=== PATIENT | female | born 1960 | race Caucasian/White ===

== ENCOUNTER 2016-10-19 17:59 | Emergency (ER) | payer BC ==
[2016-10-19] MEDS ORDERED: ALBUTEROL SO4 2.5/IPRATROPIUM 0.5 INH SOL 3 ML VIAL.NEB. NEB ONE ×4 (19:32→21:23)
[2016-10-19 19:43] VITALS: BP 136/64; PULSE 58; TEMP 98.1; BMI 32.6
[2016-10-19 20:21] LABS: BASOPHIL 0.6 % (0-2.0); MCH 29.5 pg (25.7-33.7); MCHC 33.9 g/dl (32.0-36.0); MEAN PLT VOLUME 9.1 fl (7.5-11.1); NEUTROPHILS 52.1 % (42.8-82.8); PLATELET COUNT 280 K/MM3 (134-434); RDW 13.2 % (11.6-15.6); WHITE BLOOD COUNT 8.5 K/mm3 (4.0-10.0)
[2016-10-19 20:42] LABS: INR 0.96 (0.82-1.09); PROTHROMBIN TIME (PATIENT) 10.6 SEC (9.98-11.88)
[2016-10-19 21:22] LABS: ALBUMIN 4.1 g/dl (3.4-5.0); ANION GAP 7 (8-16); CALCIUM 9.1 mg/dL (8.5-10.1); CO2 28 mmol/L (21-32); GLUCOSE,RANDOM 95 mg/dL (74-106); MAGNESIUM 2.1 mg/dL (1.8-2.4)
[2016-10-19 21:27] LABS: ALK PHOS 99 U/L (45-117); BILIRUBIN,TOTAL 0.3 mg/dL (0.2-1.0); SGOT/AST 68 U/L (15-37); SGPT/ALT 71 U/L (12-78); TOT PROT 7.6 g/dl (6.4-8.2); TROPONIN I < 0.02 ng/ml (0.00-0.05)
[2016-10-19] MEDS ORDERED: predniSONE 20 MG TABLET (UD) PO ONE (22:31)
--- NOTE | 2016-10-19 22:31 | PDOC ---
History of Present Illness - General Chief Complaint: Respiratory Stated Complaint: CHEST PAIN Time Seen by Provider: 10/19/16 19:08 History Source: Patient Exam Limitations: No Limitations - History of Present Illness Initial Comments: 10/19/16 22:26 CC cough and chest tightness x 2 days; no fever; asthma acting up Timing/Duration: reports: yesterday Severity: reports: mild Modifying Factors: improves with: albuterol inhaler Associated Symptoms: reports: nasal drainage, shortness of breath. denies: fever/chills, lightheadedness, muscle aches Past History - Past Medical History Allergies/Adverse Reactions: Allergies Allergy/AdvReac Type Severity Reaction Status Date / Time No Known Drug Allergies Allergy Verified 10/19/16 19:31 Home Medications: Ambulatory Orders Levothyroxine Sodium [Synthroid] 150 mcg PO DAILY 02/10/14 Azithromycin 250 mg PO DAILY #4 tablet 01/07/16 Tramadol HCl 50 mg PO Q6H PRN #12 tablet MDD 4 01/07/16 Albuterol Sulfate Inhaler - [Ventolin Hfa Inhaler -] 1 - 2 inh PO Q4H PRN Anemia: No Asthma: Yes Cancer: Yes (THYROID 1999) Cardiac Disorders: No CVA: No COPD: No CHF: No Dementia: No Diabetes: No GI Disorders: No Disorders: No HTN: No Hypercholesterolemia: No Liver Disease: No Seizures: No Thyroid Disease: Yes (HYPO) - Surgical History Abdominal Surgery: No - Immunization History Immunization Up to Date: Yes - Psycho/Social/Smoking Cessation Hx Anxiety: No Suicidal Ideation: No Smoking Status: Yes Smoking History: Current some day smoker Have you smoked in the past 12 months: Yes Number of Cigarettes Smoked Daily: 2 Information on smoking cessation initiated: No 'Breaking Loose' booklet given: 07/09/12 Hx Alcohol Use: No Drug/Substance Use Hx: No Substance Use Type: Alcohol Review of Systems - Review of Systems Constitutional: No: Symptoms Reported, Chills, Fever, Malaise HEENTM: Yes: Symptoms Reported. No: Double Vision Respiratory: Yes: Cough, Wheezing. No: Symptoms reported, Shortness of Breath, SOB with Exertion, SOB at Rest, Stridor Cardiac (ROS): Yes: Chest Tightness. No: Chest Pain, Irregular Heart Rate ABD/GI: No: Abdominal Distended, Constipated, Diarrhea, Nausea, Vomiting Integumentary: No: Symptoms Reported Neurological: No: Symptoms reported *Physical Exam - Vital Signs Last Vital Signs Temp Pulse Resp BP Pulse Ox 98.1 F 58 L 16 136/64 98 10/19/16 19:32 10/19/16 19:32 10/19/16 19:32 10/19/16 19:32 10/19/16 19:32 - Physical Exam General Appearance: Yes: Appropriately Dressed. No: Apparent Distress HEENT: positive: TMs Normal, Nasal Congestion, Rhinorrhea Neck: positive: Supple, Lymphadenopathy (R), Lymphadenopathy (L). negative: Tender, Rigid Respiratory/Chest: positive: Wheezing (scattered wheezing). negative: Chest Tender, Respiratory Distress, Accessory Muscle Use, Labored Respiration, Rhonchi , Stridor Cardiovascular: positive: Regular Rhythm, Regular Rate. negative: Murmur ED Treatment Course - LABORATORY CBC & Chemistry Diagram: 10/19/16 20:10 10/19/16 20:10 - ADDITIONAL ORDERS Additional order review: Laboratory Results 10/19/16 10/19/16 20:10 20:10 INR 0.96 Sodium 139 Potassium 4.3 Chloride 104 Carbon Dioxide 28 Anion Gap 7 L BUN 13 D Creatinine 1.0 Creat Clearance w eGFR 57.15 Random Glucose 95 Calcium 9.1 Magnesium 2.1 Total Bilirubin 0.3 D AST 68 H D ALT 71 D Alkaline Phosphatase 99 D Creatine Kinase 840 H CK-MB (CK-2) 4.544 H Troponin I < 0.02 Total Protein 7.6 Albumin 4.1 10/19/16 20:10 RBC 4.57 MCV 87.0 MCHC 33.9 RDW 13.2 MPV 9.1 Neutrophils % 52.1 D Lymphocytes % 39.2 D Monocytes % 6.1 Eosinophils % 2.0 D Basophils % 0.6 - Medications Given in the ED: ED Medications Discontinued Medications Generic Name Dose Route Start Last Admin Trade Name Freq PRN Reason Stop Dose Admin Albuterol/Ipratropium 1 amp 10/19/16 19:32 10/19/16 20:20 Duoneb - NEB 10/19/16 19:33 1 amp ONCE ONE Administration Albuterol/Ipratropium 1 amp 10/19/16 21:23 10/19/16 21:28 Duoneb - NEB 10/19/16 21:24 1 amp ONCE ONE Administration Medical Decision Making - Medical Decision Making 10/19/16 22:28 feeling much better post combivent x 2 ; will start prednesone x 5 days; chest xray negative *DC/Admit/Observation/Transfer Diagnosis at time of Disposition: Exacerbation of asthma - Discharge Dispostion Disposition: HOME Condition at time of disposition: Stable Admit: No - Patient Instructions Additional Instructions: please see local MD in 2 days for increased symptoms; rest; return for increased symptoms
[2016-10-19] MEDS ORDERED: predniSONE 20 MG TABLET (UD) ONE (22:32)
--- NOTE | 2016-10-20 16:09 | EKG ---
Test Reason : Blood Pressure : / mmHG Vent. Rate : 063 BPM Atrial Rate : 063 BPM P-R Int : 154 ms QRS Dur : 076 ms QT Int : 438 ms P-R-T Axes : 042 004 036 degrees QTc Int : 448 ms NORMAL SINUS RHYTHM NORMAL ECG WHEN COMPARED WITH ECG OF 07-JAN-2016 21:05, NONSPECIFIC T WAVE ABNORMALITY NO LONGER EVIDENT IN ANTEROLATERAL LEADS Confirmed by KODY ADAMSON MD ([id number]) on 10/20/2016 4:09:10 PM Referred By: DM Confirmed By:KODY ADAMSON MD
== END 2016-10-19 22:35 | disposition home or self-care (01) ==
LOC: JERFT 17:59 → JER 17:59 → JERFT 22:35
PROC: 3E0F7GC Introduction of Other Therapeutic Substance into Respiratory Tract, Via Natural or Artificial Opening (ICD-10-PCS; principal; 2016-10-19)
DX: J45.901 Unspecified asthma with (acute) exacerbation (principal); E03.9 Hypothyroidism, unspecified; F17.210 Nicotine dependence, cigarettes, uncomplicated; Z85.850 Personal history of malignant neoplasm of thyroid
CPT/HCPCS: 36415; 71020-TC; 80053; 82550; 82553; 83735; 84484; 85025; 85610; 93005; 93010; 99281-25

== ENCOUNTER 2020-05-09 13:54 | Emergency (ER) | payer BC, OTHER ==
[2020-05-09 14:05] VITALS: BMI 31.0
[2020-05-09] MEDS ORDERED: ONDANSETRON 4 MG/2 ML VIAL IVPUSH ONE (14:34)
[2020-05-09] MEDS ORDERED: ACETAMINOPHEN 1000 MG/100 ML VIAL (NON FORMULARY) IVPB ONE (14:34)
--- NOTE | 2020-05-09 14:43 | PDOC ---
History of Present Illness - History of Present Illness Initial Comments: 05/09/20 14:54 60 y/o F hx of thyroid CA (s/p thyroidectomy on daily synthroid), presents after mechanical fall on the sidewalk [place] front of [place]. pt reports getting slipper stuck in a crack and falling backward hitting the back of her head. there was no LOC after fall. Pt endorses 7/10 throbbing pain in the back of her head, nausea and fatigue.There has been no vomiting. Pt able to ambulate after incident and here in the ED. She endorses left sided neck pain and bruising on her left ankle and right first toe. She denies abdominal pain, back pain, blurry vision, weakness, numbness/tingling, PMHx: as noted above ROS: as noted SHx: occasional alcohol use, denies drug use. former smoker Allergies: NKDA ROS: GENERAL/CONSTITUTIONAL: No fever or chills. No weakness. HEAD, EYES, EARS, NOSE AND THROAT: No change in vision. No ear pain or discharge. No sore throat. CARDIOVASCULAR: No chest pain or shortness of breath RESPIRATORY: No cough, wheezing, or hemoptysis. GASTROINTESTINAL: No nausea, vomiting, diarrhea or constipation. GENITOURINARY: No dysuria, frequency, or change in urination. MUSCULOSKELETAL: No joint or muscle swelling or pain. No neck or back pain. SKIN: No rash NEUROLOGIC: No headache, vertigo, loss of consciousness, or change in strength/sensation. ENDOCRINE: No increased thirst. No abnormal weight change HEMATOLOGIC/LYMPHATIC: No anemia, easy bleeding, or history of blood clots. ALLERGIC/IMMUNOLOGIC: No hives or skin allergy. PE: GENERAL: Awake, alert, and fully oriented, in no acute distress HEAD:ttp in the occiput with mild swelling, no bleeding or lacerations observed. EYES: PERRLA, EOMI, sclera anicteric, conjunctiva clear ENT: Auricles normal inspection, hearing grossly normal, nares patent, oropharynx clear without exudates. Moist mucosa NECK: Normal ROM, supple, no lymphadenopathy, JVD, or masses LUNGS: No distress, speaks full sentences, clear to auscultation bilaterally HEART: Regular rate and rhythm, normal S1 and S2, no murmurs, rubs or gallops, peripheral pulses normal and equal bilaterally. ABDOMEN: Soft, nontender, normoactive bowel sounds.no cva tenderness. No guarding, no rebound. No masses EXTREMITIES : Normal inspection, Normal range of motion, no edema. No clubbing or cyanosis NEUROLOGICAL: Cranial nerves II through XII grossly intact. Normal speech, normal gait, no focal sensorimotor deficits MSK: no spinal tenderness SKIN: Warm, Dry, normal turgor, no rashes or lesions noted MDM DDx including but not limited to: Concussion, hemorrhage, hematoma , Workup: TX: tylenol, motrin(given after imaging) ED course Head CT an c-spine ct CT scan of the brain without intravenous contrast. Axial images were obtained from the skull base up to the high convexity. COMPARISON: Prior CT scan of the head dated 08/06/2014 There is mild age appropriate involutional changes. The ventricles and basal cisterns appear unremarkable. No mass lesion, gross acute infarct or intracranial hemorrhage are identified. Visualized paranasal sinuses and mastoid air cells are well-aerated. The calvarium is intact. Impression: No evidence of a focal intracranial lesion or hemorrhage seen. Correlate clinically to determine further evaluation and follow-up CT scan of the cervical spine without intravenous contrast Coronal and sagittal reconstruction images were obtained. There is mild reversal of the cervical spine curvature. No gross fract ure, subluxation or prevertebral soft tissue swelling is seen. No jumped facets are identified. Mild to moderate degenerative disc disease, mainly anteriorly from C5 down to T2 level with anterior spondylosis is most prominent at C6-C7 and C7-T1 level. C6-C7 minimal left paracentral disc osteophyte complex without gross nerve root impingement. C7-T1 minimal disc osteophyte complex without nerve root impingement Visualized portion of the airway appears unremarkable. Elongated/lymph node in the right mid neck, jugular chain measuring 2.5 x 0.9 cm in craniocaudal and transverse dimension. Others smaller subcentimeter bilateral lateral neck, submandibular and submental lymph nodes are present which are nonspecific. Small calcified plaques at the common carotid bifurcation, bilaterally Lung windows at the thoracic inlet appear unremarkable. IMPRESSION: See discussion above. Mild reversal of the cervical spine curvature without gross evidence of a fracture or subluxation. Multilevel degenerative disc disease, as described above Borderline enlarged right upper/mid lateral neck, jugular chain lymph node measuring 2.5 x 0.9 cm which is nonspecific. Toe x-ray 3 views of the right toes reveals no sign of an acute fracture or subluxation and no sign of blastic or lytic changes. Swelling, foreign body or soft tissue air is not seen. Arthritic changes in the toes, bunion formation by the first MTP joint and previous partial surgical resection of the distal end of the proximal phalanx of the right fifth digit and base of the middle phalanx of the right fifth digit is noted. Correlation recommended. Impression: No acute great toe pathology. Previous surgical instrumentation right fifth toe. Correlation recommended. If symptoms persist, further imaging may be of help. meds: Re-assessment: Pt feeling better after medications and ice pack to back of head. given clear d/c instructions to return should she experience worsening pain, crystal sea, vomiting, headache given reports of imaging done here in Ed. 05/09/20 14:59 05/09/20 15:37 05/09/20 16:47 05/09/20 17:17 <Delon Aburto - Last Filed: 05/09/20 17:17> <Glenis Smith - Last Filed: 05/12/20 10:20> - General Chief Complaint: Injury Stated Complaint: FALL Time Seen by Provider: 05/09/20 14:12 Past History - Medical History Anemia: No Asthma: Yes Cancer: Yes (THYROID 2000) Cardiac Disorders: No CVA: No COPD: No CHF: No Dementia: No Diabetes: No GI Disorders: No Disorders: No HTN: No Hypercholesterolemia: No Liver Disease: No Seizures: No Thyroid Disease: Yes (HYPO) - Surgical History Abdominal Surgery: No - Immunization History Immunization Up to Date: Yes - Psycho-Social/Smoking History Smoking Status: Yes Smoking History: Unknown if ever smoked Have you smoked in the past 12 months: Yes Number of Cigarettes Smoked Daily: 6 'Breaking Loose' booklet given: 07/09/12 - Substance Abuse Hx (Audit-C & DAST Scrn) How often the patient has a drink containing alcohol: Never Score: In Men: 4 or > Positive; In Women: 3 or > Positive: 0 Screen Result (Pos requires Nsg. Audit-10AR): Negative <Delon Aburto - Last Filed: 05/09/20 17:17> <Glenis Smith - Last Filed: 05/12/20 10:20> - Medical History Allergies/Adverse Reactions: Allergies Allergy/AdvReac Type Severity Reaction Status Date / Time No Known Drug Allergies Allergy Verified 05/09/20 13:58 Home Medications: Ambulatory Orders Levothyroxine Sodium [Synthroid] 150 mcg PO DAILY 02/10/14 Tramadol HCl 50 mg PO Q6H PRN #12 tablet MDD 4 01/07/16 Albuterol Sulfate Inhaler - [Ventolin Hfa Inhaler -] 1 - 2 inh PO Q4H PRN 10/19/16 *Physical Exam - Vital Signs Last Vital Signs Temp Pulse Resp BP Pulse Ox 98.6 F 87 18 117/72 97 05/09/20 13:58 05/09/20 13:58 05/09/20 13:58 05/09/20 13:58 05/09/20 13:58 <Delon Aburto - Last Filed: 05/09/20 17:17> - Vital Signs Last Vital Signs Temp Pulse Resp BP Pulse Ox 98.1 F 60 20 108/84 100 05/09/20 16:55 05/09/20 16:55 05/09/20 16:55 05/09/20 16:55 05/09/20 16:55 <Glenis Smith - Last Filed: 05/12/20 10:20> ED Treatment Course - RADIOLOGY Radiology Studies Ordered: Category Date Time Status CERVICAL SPINE CT W/O CONTR [CT] Stat CT Scan 05/09/20 14:[address] WITHOUT CONTRAST [CT] Stat CT Scan 05/09/20 14:31 Ordered <Delon Aburto - Last Filed: 05/09/20 17:17> - Medications Given in the ED: ED Medications Discontinued Medications Generic Name Dose Route Start Last Admin Trade Name Freq PRN Reason Stop Dose Admin Acetaminophen 1,000 mg 05/09/20 14:34 05/09/20 14:59 Ofirmev Injection - IVPB 05/09/20 14:35 1,000 mg ONCE ONE Administration Bacitracin 1 applic 05/09/20 15:44 05/09/20 16:04 Bacitracin - TP 05/09/20 15:45 1 applic ONCE ONE Administration Diphtheria/Tetanus/Acell Pertussis 0.5 ml 05/09/20 16:04 05/09/20 16:17 Boostrix - IM 05/09/20 16:05 0.5 ml .ONCE ONE Administration Ibuprofen 600 mg 05/09/20 16:01 05/09/20 16:17 Motrin - PO 05/09/20 16:02 600 mg ONCE ONE Administration Ondansetron HCl 4 mg 05/09/20 14:34 05/09/20 14:59 Zofran Injection IVPUSH 05/09/20 14:35 4 mg NOW ONE Administration <Glenis Smith - Last Filed: 05/12/20 10:20> Discharge - Discharge Information Problems reviewed: Yes <Delon Aburto - Last Filed: 05/09/20 17:17> - Discharge Information Problems reviewed: Yes <Glenis Smith - Last Filed: 05/12/20 10:20> - Discharge Information Clinical Impression/Diagnosis: Abrasion Hematoma of scalp Qualifiers: Encounter type: initial encounter Qualified Code(s): S00.03XA - Contusion of scalp, initial encounter Contusion, toe Qualifiers: Encounter type: initial encounter Toe: great toe Damage to nail status: without damage Laterality: right Qualified Code(s): S90.111A - Contusion of right great toe without damage to nail, initial encounter Condition: Improved Disposition: HOME - Follow up/Referral Referrals: Hammad Gomez MD [Primary Care Provider] - - Patient Discharge Instructions Patient Printed Discharge Instructions: DI for Contusion, DI for Closed Head Injury, DI for Abrasion Additional Instructions: Follow up with your primary care doctor within 48-72 hours. Rest. Take Acetaminophen (Tylenol) every 4-6 hours, as needed, for pain. Often individuals develop a headache associated with nausea in the days/hours after a head injury. This is called a concussion and does not warrant a return to the ED UNLESS: you develop significant worsening of pain, profuse vomiting, dizziness, changes in vision, difficulty walking/speaking, weakness or numbness to your extremities. - Post Discharge Activity
[2020-05-09] MEDS ORDERED: ACETAMINOPHEN INJECTION 100 ML IVPB ONE (14:52)
[2020-05-09] MEDS ORDERED: BACITRACIN 15 GM TUBE TOPICAL OINTMENT TP ONE (15:44)
[2020-05-09] MEDS ORDERED: BACITRACIN 0.9 GM PACKET ONE (15:45)
[2020-05-09] MEDS ORDERED: IBUPROFEN 600 MG TABLET (FP) PO ONE ×2 (16:01→16:11)
[2020-05-09] MEDS ORDERED: DIPHTH,PERTUSS(ACELL),TET 0.5 ML DISP.SYRIN IM ONE ×2 (16:04→16:09)
--- NOTE | 2020-05-09 16:04 | PDOC ---
Attending Attestation - Resident Resident Name: Delon Aburto - ED Attending Attestation I have performed the following: I have examined & evaluated the patient, The case was reviewed & discussed with the resident, I agree w/resident's findings & plan - HPI HPI: 05/09/20 16:03 60 y/o F hx of thyroid CA (s/p thyroidectomy on daily synthroid), presents after mechanical fall on the sidewalk in front of [place] house. pt reports getting slipper/right toes stuck in a crack and falling backward hitting the back of her head. there was no LOC after fall. Pt endorses 7/10 throbbing pain in the back of her head, nausea and fatigue.There has been no vomiting. Pt able to ambulate after incident and here in the ED. She endorses left sided neck pain and bruising on her left ankle and right first toe. She denies abdominal pain, back pain, blurry vision, weakness, numbness/tingling, last tdap unclear. 05/09/20 16:05 - Physicial Exam PE: 05/09/20 16:03 General: GCS 15 NAD, well appearing HEENT: +occipital hematoma, swelling and tenderness. PERRL, EOMI. Airway intact. No battles sign or raccoon eyes. No e/o ocular. Dentition intact. No e/o septal hematoma, nasal bridge stable. Neck: neck supple, no midline C spine tenderness or deformity, ROM intact. No anterior mass or crepitus, trachea midline. Resp: Lungs clear bilaterally Chest: no clavicle or chest wall tenderness or crepitus CVS: RRR, 2+ pulses throughout. Abdomen: Abdomen soft, nontender, nondistended. Back: Back nontender, no midline spinal tenderness along cervical/thoracic/lumbar spine, FROM, no stepoffs. MSK: Pelvis stable, Extremities symmetric, no focal areas of tenderness or deformities, proximal and distally; no pain on axial loading. FROM in all extrem. Neuro: Alert, oriented appropriately. CN II-XII grossly symmetric and intact. no focal neuro deficits. Sensation and strength intact throughout. Gait normal/stable. Skin: intact, normal color and well perfused. +right great toe plantar surface abrasion, +right great toe phalangeal tenderness - Medical Decision Making 09/05/20 16:04 Vital Signs Temp Pulse Resp BP Pulse Ox 98.6 F 87 18 117/72 97 05/09/20 13:58 05/09/20 13:58 05/09/20 13:58 05/09/20 13:58 05/09/20 13:58 Trauma ddx: ICH, SDH/ EDH, skull fx, C spine injury/strain, extremity sprain/fracture, pelvis fracture. MSK contusion, msk spasms. toe fracture/contusion, wound. Clinically doubt Intra abdominal and thoracic injuries/bleed no signs of infection vs reviewed, wnl. analgesia ice to the area of swelling to her face bacitracin and dressings to her right toe xray_of great toe, neg for fx or dislocation. tetanus updated CT head neg for acute pathology, no bleed or fx. C spine neg for fx/subluxation. there is incidental lymphadenopathy, made patient aware to followup DC stable condition, fall precautions, analgesia, boot and dressings for the abrasion. RICE therapy. concussion instructions 05/12/20 10:18 Discharge - Discharge Information Problems reviewed: Yes Clinical Impression/Diagnosis: Abrasion Hematoma of scalp Qualifiers: Encounter type: initial encounter Qualified Code(s): S00.03XA - Contusion of scalp, initial encounter Contusion, toe Qualifiers: Encounter type: initial encounter Toe: great toe Damage to nail status: without damage Laterality: right Qualified Code(s): S90.111A - Contusion of right great toe without damage to nail, initial encounter Disposition: HOME - Admission No - Follow up/Referral Referrals: Hammad Gomez MD [Primary Care Provider] - - Patient Discharge Instructions Patient Printed Discharge Instructions: DI for Closed Head Injury, DI for Abrasion, DI for Contusion Additional Instructions: Follow up with your primary care doctor within 48-72 hours. Rest. Take Acetaminophen (Tylenol) every 4-6 hours, as needed, for pain. Often individuals develop a headache associated with nausea in the days/hours after a head injury. This is called a concussion and does not warrant a return to the ED UNLESS: you develop significant worsening of pain, profuse vomiting, dizziness, changes in vision, difficulty walking/speaking, weakness or numbness to your extremities. - Post Discharge Activity
[2020-05-09 16:57] VITALS: BP 108/84; PULSE 60; TEMP 98.1
== END 2020-05-09 17:01 | disposition home or self-care (01) ==
LOC: JER 13:54
PROC: 3E0333Z Introduction of Anti-inflammatory into Peripheral Vein, Percutaneous Approach (ICD-10-PCS; principal; 2020-05-09)
PROC: 3E033GC Introduction of Other Therapeutic Substance into Peripheral Vein, Percutaneous Approach (ICD-10-PCS; 2020-05-09)
PROC: 3E0234Z Introduction of Serum, Toxoid and Vaccine into Muscle, Percutaneous Approach (ICD-10-PCS; 2020-05-09)
DX: S00.03XA Contusion of scalp, initial encounter (principal); S90.111A Contusion of right great toe without damage to nail, initial encounter
CPT/HCPCS: 70450-TC; 72125-TC; 73660-TC-FY; 90715; 99285-25; J0131

== ENCOUNTER 2021-03-12 06:25 | Day surgery (SDC) | payer OTHER ==
[2021-03-10 14:43] VITALS: BMI 31.1
[2021-03-12] MEDS ORDERED: LIDOCAINE HCL 2% (20ML MULTI-DOSE VIAL) ONE (07:21)
[2021-03-12] MEDS ORDERED: ceFAZolin SODIUM 1 GM VIAL ONE (07:30)
[2021-03-12] MEDS ORDERED: LIDOCAINE HCL/PF 2% SDV 5ML VIAL ONE (07:30)
[2021-03-12] MEDS ORDERED: MIDAZOLAM HCL 2 MG/2 ML SINGLE DOSE VIAL ONE (07:31)
[2021-03-12] MEDS ORDERED: PROPOFOL 20 ML ONE ×2 (07:31)
[2021-03-12] MEDS ORDERED: DEXAMETHASONE SOD PHOSPHATE 4 MG/1 ML VIAL ONE (08:06)
[2021-03-12] MEDS ORDERED: ONDANSETRON 4 MG/2 ML VIAL ONE (08:06)
[2021-03-12] MEDS ORDERED: IBUPROFEN 800 MG/8 ML IJ IVPB PRN (08:35)
[2021-03-12] MEDS ORDERED: oxyCODONE HCL 5 MG TABLET PO PRN (08:35)
[2021-03-12] MEDS ORDERED: ONDANSETRON 4 MG/2 ML VIAL IVPUSH PRN (08:35)
[2021-03-12] MEDS ORDERED: LACTATED RINGERS SOLUTION 1,000 ML IV SCH (08:45)
[2021-03-12 09:39] VITALS: TEMP 98.2
[2021-03-12] MEDS ORDERED: IBUPROFEN 400 MG TABLET (FP) PO ONE (10:04)
[2021-03-12 10:18] VITALS: BP 126/62; PULSE 66
== END 2021-03-12 10:57 | disposition home or self-care (01) ==
LOC: FASU 06:25
PROVIDERS: ATTEND Orthopaedic Surgery
PROC: 0LN70ZZ Release Right Hand Tendon, Open Approach (ICD-10-PCS; principal; 2021-03-12 08:12)
DX: M65.311 Trigger thumb, right thumb (principal)
CPT/HCPCS: 94760

== ENCOUNTER 2021-11-22 11:43 | Emergency (ER) | payer OTHER ==
[2021-11-22 12:16] VITALS: TEMP 98.3; BMI 32.5
[2021-11-22 13:26] LABS: BASO % 0.6 % (0-2.0); EOS % 2.1 % (0-4.5); HEMATOCRIT 39.5 % (32.4-45.2); HEMOGLOBIN 13.4 GM/dL (10.7-15.3); LYMPH % 29.3 % (8-40); MCH 30.1 pg (25.7-33.7); MEAN CELL VOLUME 88.5 fl (80-96); MEAN PLT VOLUME 8.8 fl (7.5-11.1); MONO % 6.7 % (3.8-10.2); NEUT % 61.3 % (42.8-82.8); PLATELET COUNT 260 10^3/uL (134-434); RBC 4.47 M/mm3 (3.60-5.2); RDW 13.4 % (11.6-15.6)
[2021-11-22 13:50] LABS: CALCIUM 9.6 mg/dL (8.5-10.1)
[2021-11-22 13:52] LABS: BLOOD UREA NITROGEN 9.5 mg/dL (7-18); MAGNESIUM 2.2 mg/dL (1.8-2.4)
[2021-11-22 13:54] LABS: CREATININE 0.8 mg/dL (0.55-1.3)
[2021-11-22 13:56] LABS: BILIRUBIN,TOTAL 0.6 mg/dL (0.2-1); TOT PROT 7.9 g/dl (6.4-8.2)
[2021-11-22 16:00] VITALS: BP 120/61; PULSE 55
== END 2021-11-22 16:19 | disposition home or self-care (01) ==
LOC: JER 11:43
DX: R00.2 Palpitations (principal)
CPT/HCPCS: 36415; 71046-TC-FY; 80053; 83735; 84439; 84443; 84484; 85025; 93005; 93010; 99285-25

== ENCOUNTER 2022-08-20 08:02 | Emergency (ER) | payer OTHER ==
[2022-08-20 08:52] VITALS: BP 121/54; PULSE 68; RESP 18; TEMP 98.8; BMI 33.2
== END 2022-08-20 10:25 | disposition home or self-care (01) ==
LOC: JER 08:02
DX: J06.9 Acute upper respiratory infection, unspecified (principal)
CPT/HCPCS: 0241U-QW; 71046-TC-FY; 99284-25

== ENCOUNTER 2023-03-03 05:37 | Day surgery (SDC) | payer OTHER ==
[2023-03-02 14:01] VITALS: BMI 32.5
[2023-03-03] MEDS ORDERED: LIDOCAINE HCL/PF 1% SDV 5ML VIAL ONE (07:38)
[2023-03-03] MEDS ORDERED: BUPIVACAINE HCL/PF 0.75% 10 ML VIAL ONE (07:38)
[2023-03-03] MEDS ORDERED: LIDOCAINE HCL 1% PRESERVATIVE FREE - 30ML VIAL IJ ONE ×2 (14:53)
[2023-03-03] MEDS ORDERED: BUPIVACAINE HCL/PF 0.75% 10 ML VIAL CAUD ONE (14:55)
[2023-03-03] MEDS ORDERED: ACETAMINOPHEN 500 MG TABLET (FP) PO PRN (15:53)
[2023-03-03 16:19] VITALS: RESP 18
[2023-03-03 16:21] VITALS: BP 105/58; PULSE 78; TEMP 97.8
== END 2023-03-03 16:00 | disposition home or self-care (01) ==
LOC: JASU-SURG 05:37
PROVIDERS: ATTEND Pain Medicine Pain Medicine
PROC: 3E0T33Z Introduction of Anti-inflammatory into Peripheral Nerves and Plexi, Percutaneous Approach (ICD-10-PCS; 2023-03-03)
PROC: 3E0T3BZ Introduction of Anesthetic Agent into Peripheral Nerves and Plexi, Percutaneous Approach (ICD-10-PCS; principal; 2023-03-03 16:00)
DX: M47.816 Spondylosis without myelopathy or radiculopathy, lumbar region (principal)
CPT/HCPCS: 76000-TC-FY

== ENCOUNTER 2023-03-21 05:00 | Day surgery (SDC) | payer OTHER ==
[2023-03-16 15:54] VITALS: BMI 32.5
[2023-03-21] MEDS ORDERED: ACETAMINOPHEN 500 MG TABLET (FP) PO PRN (11:09)
[2023-03-21 11:37] VITALS: RESP 20; TEMP 97.2
[2023-03-21] MEDS ORDERED: LIDOCAINE 1% P/F 10 MG/ML VIAL INF ONE (12:21)
[2023-03-21] MEDS ORDERED: BUPIVACAINE HCL/PF 0.75% 10 ML VIAL NR ONE ×3 (12:22→12:27)
[2023-03-21 13:23] VITALS: BP 115/69; PULSE 70
== END 2023-03-21 13:15 | disposition home or self-care (01) ==
LOC: JASU-SURG 05:00
PROVIDERS: ATTEND Pain Medicine Pain Medicine
PROC: 3E0T33Z Introduction of Anti-inflammatory into Peripheral Nerves and Plexi, Percutaneous Approach (ICD-10-PCS; 2023-03-21)
PROC: 3E0T3BZ Introduction of Anesthetic Agent into Peripheral Nerves and Plexi, Percutaneous Approach (ICD-10-PCS; principal; 2023-03-21 12:15)
DX: M47.816 Spondylosis without myelopathy or radiculopathy, lumbar region (principal)
CPT/HCPCS: 76000-TC-FY

== ENCOUNTER 2023-04-11 04:05 | Day surgery (SDC) | payer OTHER ==
[2023-04-05 13:35] VITALS: BMI 32.5
[2023-04-11] MEDS ORDERED: BUPIVACAINE HCL/PF 0.75% 10 ML VIAL ONE (07:15)
[2023-04-11] MEDS ORDERED: DEXAMETHASONE SOD PHOSPHATE 10 MG/1 ML VIAL ONE (07:15)
[2023-04-11] MEDS ORDERED: LIDOCAINE HCL/PF 1% SDV 5ML VIAL ONE (07:15)
[2023-04-11 09:07] VITALS: RESP 18
[2023-04-11] MEDS ORDERED: LIDOCAINE HCL 1% PRESERVATIVE FREE - 30ML VIAL IJ ONE (10:54)
[2023-04-11] MEDS ORDERED: LIDOCAINE HCL/PF 2% SDV 5ML VIAL INF ONE ×2 (10:55→11:10)
[2023-04-11] MEDS ORDERED: BUPIVACAINE HCL/PF 0.75% 10 ML VIAL NR ONE ×2 (10:55→11:10)
[2023-04-11] MEDS ORDERED: ACETAMINOPHEN 500 MG TABLET (FP) PO PRN (11:16)
[2023-04-11 12:31] VITALS: BP 116/69; PULSE 62; TEMP 97.9
== END 2023-04-11 11:48 | disposition home or self-care (01) ==
LOC: JASU-SURG 04:05
PROVIDERS: ATTEND Pain Medicine Pain Medicine
PROC: 015B3ZZ Destruction of Lumbar Nerve, Percutaneous Approach (ICD-10-PCS; principal; 2023-04-11 10:45)
DX: M47.816 Spondylosis without myelopathy or radiculopathy, lumbar region (principal)
CPT/HCPCS: 76000-TC-FY; J1100

== ENCOUNTER 2023-05-09 06:39 | Day surgery (SDC) | payer OTHER ==
[2023-05-04 14:21] VITALS: BMI 32.5
[2023-05-09] MEDS ORDERED: DEXAMETHASONE SOD PHOSPHATE 10 MG/1 ML VIAL ONE (07:19)
[2023-05-09] MEDS ORDERED: TRIAMCINOLONE ACET 40MG/1ML VIAL ONE (07:34)
[2023-05-09 07:38] VITALS: RESP 18
[2023-05-09] MEDS ORDERED: LIDOCAINE HCL 2% (50ML VIAL) INF ONE (09:57)
[2023-05-09] MEDS ORDERED: LIDOCAINE HCL 1% PRESERVATIVE FREE - 30ML VIAL IJ ONE (09:57)
[2023-05-09] MEDS ORDERED: BUPIVACAINE HCL/PF 0.75% 10 ML VIAL NR ONE (09:57)
[2023-05-09 10:44] VITALS: TEMP 97.4
[2023-05-09 11:15] VITALS: BP 131/74; PULSE 67
[2023-05-09] MEDS ORDERED: ACETAMINOPHEN 500 MG TABLET (FP) PO PRN (12:04)
== END 2023-05-09 11:00 | disposition home or self-care (01) ==
LOC: JASU-SURG 06:39
PROVIDERS: ATTEND Pain Medicine Pain Medicine
PROC: 01553ZZ Destruction of Median Nerve, Percutaneous Approach (ICD-10-PCS; principal; 2023-05-09 09:15)
DX: M47.816 Spondylosis without myelopathy or radiculopathy, lumbar region (principal)
CPT/HCPCS: 76000-TC-FY; J1100

== ENCOUNTER 2024-03-08 08:30 | Inpatient (IN) | payer OTHER ==
[2024-03-08] MEDS ORDERED: ONDANSETRON 4 MG/2 ML VIAL ONE (09:41)
[2024-03-08] MEDS ORDERED: ACETAMINOPHEN INJECTION 100 ML IVPB ONE (09:41)
[2024-03-08] MEDS: SODIUM CHLORIDE 1,000 ML IV STA ×2 (10:00→22:30)
[2024-03-08] MEDS: ONDANSETRON 4 MG/2 ML VIAL IVPUSH ONE (10:05)
[2024-03-08] MEDS: ACETAMINOPHEN 1000 MG/100 ML BAG IVPB ONE (10:05)
[2024-03-08 10:19] LABS: BASO % 0.1 % (0-2.0); EOS % 0.2 % (0-4.5); HEMATOCRIT 38.2 % (32.4-45.2); MCH 28.7 pg (25.7-33.7); MCHC 33.9 g/dl (32.0-36.0); MEAN CELL VOLUME 84.5 fl (80-96); MEAN PLT VOLUME 8.5 fl (7.5-11.1); MONO % 6.4 % (3.8-10.2); NEUT % 76.3 % (42.8-82.8); PLATELET COUNT 196 10^3/uL (134-434); RBC 4.52 M/mm3 (3.60-5.2); RDW 12.7 % (11.6-15.6); WHITE BLOOD COUNT 8.5 K/mm3 (4.0-10.0)
[2024-03-08 10:40] LABS: POTASSIUM 3.9 mmol/L (3.5-5.1)
[2024-03-08 10:43] LABS: CALCIUM 9.2 mg/dL (8.5-10.1)
[2024-03-08 10:44] LABS: ALBUMIN 3.4 g/dl (3.4-5.0); BLOOD UREA NITROGEN 10.1 mg/dL (7-18); MAGNESIUM 1.7 mg/dL (1.8-2.4)
[2024-03-08 10:47] LABS: CREATININE 0.8 mg/dL (0.55-1.3)
[2024-03-08 10:48] LABS: BILIRUBIN,TOTAL 1.1 mg/dL (0.2-1); TOT PROT 7.4 g/dl (6.4-8.2)
[2024-03-08 12:01] LABS: EPI CELLS >36 /uL (0-25.1); HYALINE CASTS 22 /uL (0-3.1); PH,URINE 5.5 (5.0-8.0); URINE APPEARANCE CLOUDY; URINE BACTERIA 1437 /uL (0-1359); URINE BILIRUBIN 1+ (NEGATIVE); URINE COLOR DK YELLOW; URINE GLUCOSE (UA) TRACE (NEGATIVE); URINE KETONE TRACE (NEGATIVE); URINE LEUK ESTERASE TRACE (NEGATIVE); URINE NITRITE NEGATIVE (NEGATIVE); URINE PROTEIN 1+ (NEGATIVE); URINE WBC 166 /uL (0-25.8)
[2024-03-08 12:56] LABS: URINE RBC 49 /uL (0-23.9)
[2024-03-08] MEDS ORDERED: morphine SULFATE 4 MG/ML VIAL ONE (13:11)
[2024-03-08 13:24] LABS: POTASSIUM 3.5 mmol/L (3.5-5.1)
[2024-03-08] MEDS: morphine CARPU-JECT 4 MG/1 ML DISP.SYRIN IVPUSH ONE (13:24)
[2024-03-08 13:26] LABS: CALCIUM 8.4 mg/dL (8.5-10.1)
[2024-03-08 13:27] LABS: ALBUMIN 3.2 g/dl (3.4-5.0); BLOOD UREA NITROGEN 9.6 mg/dL (7-18)
[2024-03-08 13:30] LABS: CREATININE 0.8 mg/dL (0.55-1.3)
[2024-03-08 13:32] LABS: BILIRUBIN,TOTAL 0.8 mg/dL (0.2-1); TOT PROT 6.6 g/dl (6.4-8.2)
[2024-03-08] MEDS ORDERED: PIPERACILLIN/TAZOB 4.5 GM 4.5 GM/100 ML BAG IVPB ONE (15:09)
[2024-03-08] MEDS: PIPERACILLIN/TAZOB 4.5 GM 4.5 GM in DEXTROSE 5%-WATER 100 ML IVPB ONE (15:40)
[2024-03-08] MEDS: LACTATED RINGERS SOLUTION 1,000 ML/1,000 ML INFUS.BAG IV SCH (15:59)
[2024-03-08] MEDS: MAGNESIUM SULF 50% (8.12 MEQ/2 ML-1 GM VIAL) IVPB ONE (20:21)
[2024-03-08] MEDS: PIPERACILLIN/TAZOB 3.375 GM 3.375 GM in DEXTROSE 5%-WATER - 50 ML IVPB SCH (20:21)
[2024-03-08] MEDS: DEXTROSE 5%-LACTATED RINGERS 1,000 ML IV SCH (20:41)
[2024-03-08] MEDS: INSULIN ASPART SLIDING SCALE (NOVOLOG) 1 VIAL SQ SCH (22:09)
[2024-03-08] MEDS: ACETAMINOPHEN 1000 MG/100 ML BAG IVPB PRN (22:10)
[2024-03-09] MEDS: LEVOTHYROXINE NA 150 MCG TABLET PO SCH (06:46)
[2024-03-09 08:35] LABS: BASO % 0.3 % (0-2.0); HEMATOCRIT 34.8 % (32.4-45.2); HEMOGLOBIN 11.8 GM/dL (10.7-15.3); LYMPH % 25.5 % (8-40); MCH 28.9 pg (25.7-33.7); MCHC 33.9 g/dl (32.0-36.0); MEAN CELL VOLUME 85.3 fl (80-96); MEAN PLT VOLUME 8.5 fl (7.5-11.1); MONO % 8.8 % (3.8-10.2); NEUT % 64.4 % (42.8-82.8); PLATELET COUNT 174 10^3/uL (134-434); RBC 4.08 M/mm3 (3.60-5.2); RDW 12.7 % (11.6-15.6); WHITE BLOOD COUNT 5.7 K/mm3 (4.0-10.0)
[2024-03-09 08:54] LABS: POTASSIUM 3.1 mmol/L (3.5-5.1)
[2024-03-09 09:01] LABS: BLOOD UREA NITROGEN 7.7 mg/dL (7-18); CALCIUM 8.6 mg/dL (8.5-10.1)
[2024-03-09 09:05] LABS: CREATININE 0.7 mg/dL (0.55-1.3)
[2024-03-09] MEDS ORDERED: ENOXAPARIN NA (PORCINE) 40 MG/0.4 ML DISP.SYRIN SQ SCH (10:00)
[2024-03-09] MEDS: DEXTROSE 5%-LACTATED RINGERS 1,000 ML IV SCH (12:40)
[2024-03-09] MEDS: POTASSIUM CHLORIDE TABS 20 MEQ TABLET.ER (FP) PO SCH (13:49)
[2024-03-09] MEDS: ATORVASTATIN CA 20 MG TABLET (FP) PO SCH (13:49)
[2024-03-09] MEDS: ACETAMINOPHEN 1000 MG/100 ML BAG IVPB SCH (13:50)
[2024-03-09] MEDS: CEFTRIAXONE 2 GM in DEXTROSE 5%-WATER 100 ML IVPB SCH (15:58)
[2024-03-09] MEDS: HEPARIN NA (PORCINE) 5,000 UNITS/ML 1ML VIAL SQ SCH (21:07)
[2024-03-10 07:28] VITALS: RESP 18
[2024-03-10] MEDS: PIPERACILLIN/TAZOB 3.375 GM 3.375 GM in DEXTROSE 5%-WATER - 50 ML IVPB SCH (07:30)
[2024-03-10 09:40] LABS: MAGNESIUM 1.8 mg/dL (1.8-2.4)
[2024-03-10 09:45] LABS: PHOSPHOROUS 2.7 mg/dL (2.5-4.9)
[2024-03-10] MEDS: SIMETHICONE 80 MG TAB.CHEW (FP) PO SCH (09:54)
[2024-03-10] MEDS: SUCRALFATE 1 GM TABLET (FP) PO SCH (11:53)
[2024-03-10 20:47] LABS: CALCIUM 8.5 mg/dL (8.5-10.1); POTASSIUM 3.1 mmol/L (3.5-5.1)
[2024-03-10 20:49] LABS: BLOOD UREA NITROGEN 3.3 mg/dL (7-18)
[2024-03-10 20:52] LABS: CREATININE 0.7 mg/dL (0.55-1.3)
[2024-03-11] MEDS ORDERED: ONDANSETRON *ODT* 4 MG TABLET SL PRN (07:48)
[2024-03-11 09:48] LABS: BASO % 0.3 % (0-2.0); EOS % 3.2 % (0-4.5); HEMATOCRIT 34.2 % (32.4-45.2); HEMOGLOBIN 11.7 GM/dL (10.7-15.3); LYMPH % 29.6 % (8-40); MCH 28.8 pg (25.7-33.7); MCHC 34.2 g/dl (32.0-36.0); MEAN CELL VOLUME 84.3 fl (80-96); MEAN PLT VOLUME 8.5 fl (7.5-11.1); MONO % 10.3 % (3.8-10.2); NEUT % 56.6 % (42.8-82.8); PLATELET COUNT 213 10^3/uL (134-434); RBC 4.06 M/mm3 (3.60-5.2); RDW 12.5 % (11.6-15.6); WHITE BLOOD COUNT 4.7 K/mm3 (4.0-10.0)
[2024-03-11 10:33] LABS: ALBUMIN 3.2 g/dl (3.4-5.0); ALK PHOS 117 U/L (45-117); ANION GAP 5 mmol/L (4-13); BILIRUBIN,TOTAL 0.5 mg/dL (0.2-1); CALCIUM 8.8 mg/dL (8.5-10.1); CHLORIDE 106 mmol/L (98-107); CO2 29 mmol/L (21-32); CREATININE 0.6 mg/dL (0.55-1.3); GLUCOSE,RANDOM 183 mg/dL (74-106); MAGNESIUM 1.6 mg/dL (1.8-2.4); PHOSPHOROUS 2.6 mg/dL (2.5-4.9); POTASSIUM 3.1 mmol/L (3.5-5.1); SGOT/AST 47 U/L (15-37); SGPT/ALT 32 U/L (13-61); SODIUM 140 mmol/L (136-145); TOT PROT 6.5 g/dl (6.4-8.2)
[2024-03-11 10:40] LABS: BLOOD UREA NITROGEN 2.5 mg/dL (7-18)
[2024-03-11] MEDS ORDERED: PSYLLIUM 5.85 GM PACKET PO SCH (14:00)
[2024-03-11] MEDS: MAGNESIUM SULFATE IN WATER 2 GM/50 ML IVPB IVPB ONE (14:55)
[2024-03-11 15:28] VITALS: BMI 30.2
[2024-03-11] MEDS: POTASSIUM CHLORIDE ORAL LIQUID 20 MEQ/15 ML PO SCH (17:39)
[2024-03-11] MEDS ORDERED: POTASSIUM CHLORIDE ORAL LIQUID 20 MEQ/15 ML PO SCH (22:00)
[2024-03-12 06:39] VITALS: BP 135/66; PULSE 63; TEMP 98.2
[2024-03-12 09:32] LABS: BASO % 0.3 % (0-2.0); EOS % 2.9 % (0-4.5); HEMATOCRIT 35.3 % (32.4-45.2); HEMOGLOBIN 12.1 GM/dL (10.7-15.3); LYMPH % 33.3 % (8-40); MCH 28.8 pg (25.7-33.7); MCHC 34.2 g/dl (32.0-36.0); MEAN CELL VOLUME 84.1 fl (80-96); MEAN PLT VOLUME 8.2 fl (7.5-11.1); NEUT % 54.5 % (42.8-82.8); PLATELET COUNT 216 10^3/uL (134-434); RBC 4.19 M/mm3 (3.60-5.2); WHITE BLOOD COUNT 4.5 K/mm3 (4.0-10.0)
[2024-03-12 09:47] LABS: CHLORIDE 108 mmol/L (98-107); POTASSIUM 3.5 mmol/L (3.5-5.1); SODIUM 143 mmol/L (136-145)
[2024-03-12 09:49] LABS: GLUCOSE,RANDOM 187 mg/dL (74-106)
[2024-03-12 09:51] LABS: ANION GAP 7 mmol/L (4-13); CO2 29 mmol/L (21-32)
[2024-03-12 09:55] LABS: ALK PHOS 140 U/L (45-117); CREATININE 0.5 mg/dL (0.55-1.3)
[2024-03-12 09:57] LABS: CALCIUM 8.8 mg/dL (8.5-10.1); TOT PROT 6.8 g/dl (6.4-8.2)
[2024-03-12 09:58] LABS: MAGNESIUM 1.9 mg/dL (1.8-2.4)
[2024-03-12 10:01] LABS: SGOT/AST 63 U/L (15-37)
[2024-03-12 10:02] LABS: ALBUMIN 3.2 g/dl (3.4-5.0)
[2024-03-12 10:04] LABS: SGPT/ALT 44 U/L (13-61)
[2024-03-12 10:06] LABS: PHOSPHOROUS 2.3 mg/dL (2.5-4.9)
[2024-03-12 10:07] LABS: BILIRUBIN,TOTAL 0.5 mg/dL (0.2-1); BLOOD UREA NITROGEN 1.7 mg/dL (7-18)
== END 2024-03-12 13:11 | disposition home or self-care (01) | DRG 392 ==
LOC: JER 08:30 → JERBED 13:34 → J8W 18:38
PROVIDERS: ADMIT Internal Medicine; ATTEND Nurse Practitioner Acute Care
DX: A08.8 Other specified intestinal infections (principal); E78.5 Hyperlipidemia, unspecified; L40.0 Psoriasis vulgaris; R50.9 Fever, unspecified; E89.0 Postprocedural hypothyroidism; E87.6 Hypokalemia; E83.42 Hypomagnesemia; Z85.850 Personal history of malignant neoplasm of thyroid
CPT/HCPCS: 0241U-QW; 36415; 74176-TC; 74177-TC; 80048; 80053; 81003; 82962; 83690; 83735; 84100; 84484; 85025; 87040; 87045; 87046; 87086; 87205; 87209; 87324; 87425; 87449; 87798; 93005; 93010; 99285-25; J0131; J1644

== ENCOUNTER 2024-07-19 22:26 | Emergency (ER) | payer OTHER ==
[2024-07-19 22:35] VITALS: BP 143/74; PULSE 72; RESP 20; TEMP 98.6; BMI 31.0
== END 2024-07-20 00:13 | disposition home or self-care (01) ==
LOC: JER 22:26
DX: R05.9 Cough, unspecified (principal); H92.01 Otalgia, right ear; J06.9 Acute upper respiratory infection, unspecified; R07.2 Precordial pain
CPT/HCPCS: 71046-TC-FY; 93005; 93010; 99284-25

== ENCOUNTER 2025-05-01 06:18 | Day surgery (SDC) | payer OTHER ==
[2025-05-01] MEDS: LIDOCAINE HCL 1% PRESERVATIVE FREE - 30ML VIAL IJ ONE ×2 (14:14→14:15)
[2025-05-01] MEDS: IOHEXOL 180 MG/1 ML ML IJ ONE ×2 (14:15→14:17)
[2025-05-01] MEDS: DEXAMETHASONE SOD PHOSPHATE 10 MG/1 ML VIAL IVPUSH ONE ×2 (14:16→14:27)
[2025-05-01 14:45] VITALS: BP 144/66; PULSE 68; RESP 20; TEMP 97.7
== END 2025-05-01 15:24 | disposition home or self-care (01) ==
LOC: JASU-SURG 06:18
PROVIDERS: ATTEND Pain Medicine Pain Medicine
PROC: 3E0R3BZ Introduction of Anesthetic Agent into Spinal Canal, Percutaneous Approach (ICD-10-PCS; 2025-05-01)
PROC: 3E0R33Z Introduction of Anti-inflammatory into Spinal Canal, Percutaneous Approach (ICD-10-PCS; principal; 2025-05-01 14:30)
DX: M54.15 Radiculopathy, thoracolumbar region (principal)
CPT/HCPCS: 76000-TC-FY; J1100